=== PATIENT | male | born 1955 | race Hispanic/Latino ===

== ENCOUNTER 2016-10-01 00:14 | Day surgery (SDC) | payer OTHER ==
[~2016-10-01] VITALS: Ht 162.6 cm; Wt 78.2 kg
[2016-10-01] VITALS (13 sets, daily range): BP systolic 104–129; BP diastolic 63–103; PULSE 66–89; RESP 12–20; O2SAT 97–98
[~2016-10-01 00:14] MED LIST: ASPI-973 PO; ENAL2.5T PO; FURO-129 PO; HYDR-4003 PO; METO-272 PO; POTA10CA42 PO; WARF5TAB7 PO
--- NOTE | 2016-10-01 12:32 | NUR ---
KIMMIE Admit to [facility] bed #1. Family at bedside. Media Marketing Specialist used. Patient denies pain. FS INR 1.0. HL X 2 placed and labs obtained. Consent confirmed. History and medications reviewed. Pre-procedure teaching done and questions answered.
[2016-10-01] MEDS ORDERED: Heparin 1,000 Units/500 mL NS Premix IV ONE (12:56)
[2016-10-01] MEDS ORDERED: Heparin 10,000 Unit/1,000 mL NS Premix IV ONE (12:56)
[2016-10-01] MEDS ORDERED: 0.9% Sodium Chloride 50 ML ONE (13:08)
[2016-10-01] MEDS ORDERED: 0.9% Sodium Chloride 1,000 ML IV ONE (13:09)
[2016-10-01 13:16] LABS: Mean Corpuscular Hemoglobin 28.2 pg (27.0-35.0); Mean Corpuscular Volume 87.5 fL (81-100)
[2016-10-01 13:17] LABS: BASOPHILS % (AUTO) 0.3 % (0-3); EOSINOPHILS % (AUTO) 1.8 % (0-5); MONOCYTES % (AUTO) 11.1 % (4-12); Platelet Count 279 bil/L (150-400)
[2016-10-01 13:19] LABS: INR 0.97 ratio
[2016-10-01] MEDS ORDERED: fentaNYL-PF 50 mCg/mL 2 mL Inj ONE (15:14)
[2016-10-01] MEDS ORDERED: 0.9% Sodium Chloride 1,000 ML IV SCH (16:01)
[2016-10-01] MEDS ORDERED: Ondansetron 2 mg/mL 2 mL Inj IVPUSH PRN (16:05)
[2016-10-01] MEDS ORDERED: HYDROcodone-APAP 5-325 mg Tablet PO PRN (16:05)
[2016-10-01] MEDS ORDERED: Atropine 1 mg/10 mL (Code) Syringe IVPUSH PRN (16:05)
[2016-10-01] MEDS ORDERED: DIGO0.12 PO (18:30)
--- NOTE | 2016-10-01 20:01 | NUR ---
KIMMIE Patient return from phlebotomist medical lab assistant/heart cath at 1620. Family at bedside. Patient sleeping but wakes easily to voice. Denies pain. No bleeding or hematoma at right groin Perclose. Pedal pulses present. Prior to discharge taking PO, ambulatory and void. Instructions reviewed with patient and family with the sizing machine tender. Written information given in Scottish and Mohawk and questions
--- NOTE | 2016-10-02 10:03 | CS94 ---
[address] [address] DIAGNOSTIC CARDIAC CATHETERIZATION PATIENT: CASSANDRA DUFFY : 1955 MR#: [id number] ADMIT: 10/01/2016 JOB ID: [id number] SERVICE DATE: 10/01/2016 CHIEF COMPLAINT: Shortness of breath. PATIENT PRESENTATION: Patient is a 60-year-old man with history of reduced heart function, who is admitted for elective right and left heart catheterization. PROCEDURES PERFORMED: 1. Right common femoral artery access under ultrasound guidance. 2. Right common femoral vein access under ultrasound guidance. 3. Right heart catheterization with cardiac output with thermodilution and Elizabeth method, as well as measurement of pressures. 4. Coronary angiograms. 5. Hemostasis obtained via Perclose closure device. PROCEDURE: Following informed consent, patient was prepped and draped in the usual sterile fashion. A 6-Canadian sheath was placed in a right common femoral artery, 8-Canadian sheath was placed in the right common femoral vein. Sheath placement was confirmed via femoral angiogram. The Somerset-Fátima catheter was advanced into the right pulmonary artery. Pressures were recorded in the pulmonary capillary wedge position, pulmonary artery, right ventricle and right atrium. Cardiac output was monitored via thermodilution method and Elizabeth method. At this point in time, simultaneous recordings were made to rule out ventricular interdependence of the right ventricular pressure and left ventricular pressure. After this, the Somerset-Fátima catheter was withdrawn. Ventriculogram was deferred by intention. At this point in time, the pigtail was withdrawn from the left ventricle into the aorta. There was no evidence of aortic stenosis. JL4 and JR4 catheters were used to engage left main and right coronary artery ostia, respectively. Hand injection and craniocaudal angulation was used to obtain selective coronary angiograms. All exchanges were performed over a wire. Hemostasis was obtained via Perclose closure device. No complications immediate postprocedure. FINDINGS: Right common femoral artery gives rise to SFA and profunda femoris. There is no obstructive lesions seen. The sheath entered the right common femoral artery at the 50th percentile cindy of the femoral head. There is no evidence of contrast extravasation or dissection. Coronary angiograms: Left main is a normal caliber vessel, gives rise to LAD and the circumflex. No obstructive lesions are seen. There is excellent flow back and there is no dampening on engagement. LAD is a normal caliber vessel. It gives rise to a large first diagonal branch, a medium-sized bifurcating second diagonal branch and a tiny third diagonal branch, as well as multiple septal perforators. There is no obstructive disease seen. Circumflex is a nondominant vessel. It is rather small. It gives rise to a big first OM branch and a small second OM branch. There is also a small third OM branch. There is no hemodynamically significant disease present. Right coronary artery is a large vessel which gives rise to the PDA and posterolateral branch. No obstructive lesions are seen. HEMODYNAMICS: Right atrial pressure is 5 mmHg. Right ventricular pressure is 25 with end-diastolic pressure of 5. Pulmonary artery pressure is 25/15 and pulmonary capillary wedge pressure is 10 mmHg. Left ventricular end-diastolic pressure is 12 mmHg. There is no evidence of aortic stenosis based on pullback. Cardiac output via thermodilution method is 4.4 L/minute. IMPRESSION: 1. Hemodynamically well compensated man with cardiomyopathy. Cardiac output at 4.4 L/minute. 2. No evidence of obstructive coronary artery disease. 3. Well-compensated hemodynamics with normal LV filling pressure. PLAN: 1. Continue current medications. 2. Followup in about a month. 3. Repeat echocardiogram to see if he qualifies for ICD. Thank you very much for the opportunity to evaluate him.
== END 2016-10-01 23:59 | disposition home or self-care (01) ==
LOC: SOUO 00:14
PROVIDERS: ATTEND Internal Medicine
DX: I42.9 Cardiomyopathy, unspecified (principal); R06.02 Shortness of breath; I48.2 Chronic atrial fibrillation; Z79.01 Long term (current) use of anticoagulants; I34.0 Nonrheumatic mitral (valve) insufficiency; Z79.82 Long term (current) use of aspirin
CPT/HCPCS: 36415; 80048; 85025; 85610; 93005; 93460; 99152; 99153; C1760; C1769; J1200; J1644; J2060; J2250; J3010; Q9967